=== PATIENT | male | born 1990 ===

== ENCOUNTER 2018-01-05 11:25 | Emergency (ER) | payer OTHER, BC ==
[2018-01-05 11:36] VITALS: BP 132/83; PULSE 82; TEMP 98; O2SAT 100
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
[2018-01-05 13:42] VITALS: RESP 20
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
== END 2018-01-05 13:41 | disposition home or self-care (01) ==
LOC: C.ER 11:25
DX: S16.1XXA Strain of muscle, fascia and tendon at neck level, initial encounter (principal); S39.012A Strain of muscle, fascia and tendon of lower back, initial encounter; V43.52XA Car driver injured in collision with other type car in traffic accident, initial encounter; Y92.410 Unspecified street and highway as the place of occurrence of the external cause